=== PATIENT | male | born 1970 | race American Indian/Alaskan Native ===

== ENCOUNTER 2021-09-09 13:24 | Emergency (ER) | payer BC ==
[2021-09-09] MEDS ORDERED: SODIUM CHLORIDE 0.9% 500 ML 500 ML IV ONE (13:39)
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
[2021-09-09 14:20] LABS: Hematocrit 41.7 % (35.5-45.6); Hemoglobin 14.7 gm/dl (11.8-15.2); Mean Corpuscular HGB Conc 35 % (32-34); Mean Corpuscular Volume 105 fl (84-94); Platelet Count 181 K/mm3 (140-440); Red Blood Count 3.97 M/mm3 (3.65-5.03); Red Cell Distribution Width 14.1 % (13.2-15.2)
--- NOTE | 2021-09-09 14:28 | Cat Scan Report ---
CT head/brain wo con INDICATION: fall, head injury, leg weakness. TECHNIQUE: All CT scans at this location are performed using CT dose reduction for ALARA by means of automated e xposure control. COMPARISON: None available. FINDINGS: There is no evidence of hemorrhage, hydrocephalus, brain edema, or mass effect/mass lesion. There is overall normal brain formation and brain volume for the patient's age. Ventricular and cisternal/sulc al size is normal for age. The included paranasal sinuses and mastoid air cells are clear. The orbits appear unremarkable. IMPRESSION: 1. No acute intracranial abnormality. Signer Name: Abraham Rock MD Signed: 09/09/2021 2:24 PM Workstation Name: [id number]
[2021-09-09 14:34] LABS: BUN/Creatinine Ratio 16; Blood Urea Nitrogen 22 mg/dL (9-20); Calcium 9.5 mg/dL (8.4-10.2); Hemolysis Index 8
[2021-09-09] MEDS ORDERED: SODIUM CHLORIDE 0.9% 1000 ML 1,000 ML ONE (14:50)
[2021-09-09 17:03] VITALS: BP 147/87
--- NOTE | 2021-09-10 10:37 | Electrocardiograph Report ---
[facility] Test Date: 2021-09-09 Test Time: 14:56:22 Pat Name: ROGER PADRON Department: Room: Gender: M Pharmaceutical Salesperson: TIMO : 1970 Requested By: OSCAR BLOUNT Order Number: [id number] Reading MD: Sajan Rousseau Measurements Intervals Gilbert Rate: 84 P: 29 OR: 230 QRS: -4 QRSD: 117 T: 34 QT: 402 QTc: 476 Interpretive Statements Sinus rhythm Prolonged OR interval IVCD No previous ECG available for comparison Electronically Signed On 09-10-2021 10:36:42 EDT by Sajan Rousseau
== END 2021-09-09 17:03 | disposition home or self-care (01) ==
LOC: ED 13:24
DX: N17.9 Acute kidney failure, unspecified (principal); R53.1 Weakness
CPT/HCPCS: 36415; 70450; 80048; 83735; 85027; 93005; 99284; J7030